=== PATIENT | female | born 1960 | race Caucasian/White ===

== ENCOUNTER 2018-12-28 15:28 | Inpatient (IN) | payer MEDICARE, OTHER ==
[~2018-12-28] VITALS: Ht 152.4 cm; Wt 74.9 kg
[2018-12-28 20:00] VITALS: BP 105/65
[2018-12-28] MEDS ORDERED: ALBU18HF2 INH (20:40)
[2018-12-28] MEDS ORDERED: PROP10DR15 (20:41)
[2018-12-28] MEDS ORDERED: ISOS30TA6 PO ×2 (20:46→22:18)
[2018-12-28] MEDS ORDERED: LORA10TA7 PO (20:47)
[2018-12-28] MEDS ORDERED: ONDA8TAB13 PO ×2 (20:49→22:23)
[2018-12-28] MEDS ORDERED: PANT40TA4 PO (20:51)
[2018-12-28] MEDS ORDERED: OXCA300T16 PO (20:52)
[2018-12-28] MEDS ORDERED: SIMV20TA5 PO (20:53)
[2018-12-28] MEDS ORDERED: FLUO20CA39 PO (20:54)
[2018-12-28] MEDS ORDERED: HYDR-3968 PO (21:00)
[2018-12-28] MEDS ORDERED: LORA0.5T PO (21:02)
[2018-12-28] MEDS ORDERED: FLUO40CA10 PO (21:04)
[2018-12-28] MEDS ORDERED: FLUO20CA22 PO (22:20)
[2018-12-28] MEDS ORDERED: PROP10DR15 OP (22:28)
[2018-12-28] MEDS ORDERED: LORazepam 0.5 MG tablet PO PRN (22:35)
[2018-12-28] MEDS ORDERED: albuterol 2.5 MG/3 ML nebule NEB PRN (22:55)
[2018-12-29] MEDS ORDERED: non-formulary drug (Ondansetron (Ondansetron Odt) 1 TAB) PO SCH (02:00)
[2018-12-29] MEDS ORDERED: PROPYLENE GLYCOL OP SCH (02:00)
[2018-12-29] MEDS ORDERED: PROPYLENE GLYCOL EACHEYE PRN (02:25)
[2018-12-29] MEDS ORDERED: acetaminophen 325mg tablet PO PRN ×2 (02:25)
[2018-12-29] MEDS ORDERED: hydrOXYzine 25 MG tablet PO PRN (02:30)
[2018-12-29] MEDS ORDERED: mag hydrox/Alum hydrox/simeth 30ml oral suspension PO PRN (02:30)
[2018-12-29] MEDS ORDERED: magnesium hydroxide 30ml (MOM) UD suspension PO PRN (02:30)
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
[2018-12-29 07:52] VITALS: BP 110/72
[2018-12-29] MEDS ORDERED: FLUoxetine 20mg capsule PO SCH ×2 (08:00)
[2018-12-29] MEDS ORDERED: ondansetron 4mg rapidly disintigrating tab PO SCH (08:00)
[2018-12-29 08:18] LABS: CHOL/HDL RATIO 3.1 (0.00-4.99); CHOLESTEROL 178 MG/DL (0-200); HDL CHOLESTEROL 58 MG/DL (35-60); LDL CHOLESTEROL 96 MG/DL (50-100); TRIGLYCERIDES 160 MG/DL (20-135)
[2018-12-29 08:19] LABS: HEMOGLOBIN A1C 5.7 % (4.5-6.2)
[2018-12-29] MEDS: loratadine 10mg tablet PO SCH (08:42)
[2018-12-29] MEDS: isosorbide mononitrate 30mg tab.SR.24H PO SCH (08:42)
[2018-12-29] MEDS: oxcarbazepine 150mg tablet PO SCH ×2 (08:43→21:09)
[2018-12-29] MEDS: pantoprazole 40mg Tablet.DR PO SCH (08:43)
[2018-12-29] MEDS ORDERED: ondansetron 4mg rapidly disintigrating tab PO PRN (09:00)
[2018-12-29] MEDS: FLUoxetine 20mg capsule PO SCH (09:46)
[2018-12-29] MEDS: HYDROcodone/acetaminophen 7.5MG/325MG per 15ml UD CUP PO PRN (09:47)
[2018-12-29] MEDS ORDERED: tuberculin, purif. prot. deriv. 5 units/0.1ml ID ONE (10:00)
[2018-12-29] MEDS ORDERED: sennosides/docusate sodium tablet PO PRN (12:20)
[2018-12-29 13:01] LABS: BASOPHILS # (AUTO) 0.1 X10'3 (0-0.2); BASOPHILS % (AUTO) 0.9 % (0-1); EOSINOPHILS % (AUTO) 0.5 % (0-6); HEMATOCRIT 42.3 % (35.0-45.0); HEMOGLOBIN 14.3 g/dl (12.0-16.0); LYMPHOCYTES # (AUTO) 1.6 X10'3 (1.1-4.8); LYMPHOCYTES % (AUTO) 15.4 % (21-51); MEAN CORPUSCULAR HEMOGLOBIN 31.5 PG (27.0-31.0); MEAN CORPUSCULAR HGB CONC 33.8 g/dL (33.0-36.5); MEAN CORPUSCULAR VOLUME 93.2 FL (78-98); MEAN PLATELET VOLUME 6.5 FL (7.4-10.4); MONOCYTES # (AUTO) 0.6 X10'3 (0-0.9); NEUTROPHILS % (AUTO) 77.2 % (42-75); PLATELET COUNT 339 X10'3 (140-440); RED BLOOD COUNT 4.54 X10'6 (4.20-5.60); RED CELL DISTRIBUTION WIDTH 13.7 % (11.5-14.5); WHITE BLOOD COUNT 10.4 X10'3 (4.5-11.0)
[2018-12-29 13:12] LABS: ALBUMIN 3.8 G/DL (3.4-5.0); ANION GAP 10 (8-16); BLOOD UREA NITROGEN 24 MG/DL (7-18); BUN/CREATININE RATIO 27.3 (6.6-38.0); CALCIUM 9.1 MG/DL (8.5-10.1); CHLORIDE 99 MMOL/L (99-107); CREATININE 0.88 MG/DL (0.40-0.90); GLUCOSE 120 MG/DL (70-104); SODIUM 136 MMOL/L (135-145); TOTAL CARBON DIOXIDE 26.9 MMOL/L (24-32); eGFR 66 ML/MIN
--- NOTE | 2018-12-29 13:22 | NUR ---
Nursing Note: Pt reports having positive PPD in the past. Chest X-ray negative for signs of TB. Will continue to monitor.
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
[2018-12-29 14:50] VITALS: BP 129/77
[2018-12-29] MEDS ORDERED: aspirin 325mg tablet PO ONE (15:15)
[2018-12-29] MEDS: nitroGLYCERIN 0.4mg SUBLingual tab SL PRN (15:29)
--- NOTE | 2018-12-29 15:36 | NUR ---
Nursing Note: At 1445, pt reported 5/[address] Alfaro notified, EKG performed, troponins series ordered, aspirin 325 mg, 1 nitro 0.4 mg administered. Will continue to monitor.
[2018-12-29 15:53] VITALS: BP 120/74
[2018-12-29 16:50] VITALS: BP 133/75
--- NOTE | 2018-12-29 17:09 | NUR ---
Nursing Note: Pt reports nitro helped chest pain. She refuses a second dose of nitroglycerin. VS stable. 1st troponin <0.4. Will continue to monitor.
[2018-12-29 20:00] VITALS: BP 107/76
[2018-12-29] MEDS: lurasidone 20mg tablet PO SCH (21:00)
[2018-12-29] MEDS: atorvastatin 20mg tablet PO SCH (21:09)
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
[2018-12-29] MEDS ORDERED: OLANZapine 5mg rapidly disint. tablet PO ONE (22:55)
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
[2018-12-30 07:43] VITALS: BP 131/77
[2018-12-30] MEDS: loratadine 10mg tablet PO SCH (08:00)
[2018-12-30] MEDS: pantoprazole 40mg Tablet.DR PO SCH (08:34)
[2018-12-30] MEDS: FLUoxetine 20mg capsule PO SCH (08:35)
[2018-12-30] MEDS: oxcarbazepine 150mg tablet PO SCH ×2 (08:35→21:14)
[2018-12-30] MEDS: isosorbide mononitrate 30mg tab.SR.24H PO SCH (08:35)
[2018-12-30] MEDS: HYDROcodone/acetaminophen 7.5MG/325MG per 15ml UD CUP PO PRN (14:40)
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
--- NOTE | 2018-12-30 18:18 | NUR ---
Pt. attempting to get out front door.
[2018-12-30 19:43] VITALS: BP 142/83
[2018-12-30] MEDS: lurasidone 20mg tablet PO SCH (21:00)
[2018-12-30] MEDS: atorvastatin 20mg tablet PO SCH (21:14)
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
[2018-12-31] MEDS: pantoprazole 40mg Tablet.DR PO SCH (07:18)
[2018-12-31] MEDS: isosorbide mononitrate 30mg tab.SR.24H PO SCH (07:18)
[2018-12-31] MEDS: FLUoxetine 20mg capsule PO SCH (07:18)
[2018-12-31] MEDS: loratadine 10mg tablet PO SCH (07:19)
[2018-12-31] MEDS: oxcarbazepine 150mg tablet PO SCH (07:19)
[2018-12-31 07:49] VITALS: BP 144/86
[2018-12-31] MEDS ORDERED: oxcarbazepine 150mg tablet PO ONE (10:00)
--- NOTE | 2018-12-31 10:33 | NUR ---
Nursing Note Patient refused her Trileptal, Claritin, Imdur, Protonix, and Latuda at night. Patient was demanding that she was not given the right Trileptal, went to pharmacy and they are working on getting her own medication that she brought in, because she is very paranoid and will not take Trileptal we have in stock. Patient is demanding to leave, called the Nursing Outbound Telemarketing Representative to complain. States that she called the [place] Attorneys office, Patients Advocate. Called security because she was getting into heated arguments with Kecia, Director. Patient believes that there is nothing wrong with her. Patient very paranoid of everyone, thinks we are trying to steal her money. In hallway now and believes that we are spraying her with Abilify.
[2018-12-31] MEDS: nitroGLYCERIN 0.4mg SUBLingual tab SL PRN ×3 (12:21→12:49)
[2018-12-31] MEDS: HYDROcodone/acetaminophen 7.5MG/325MG per 15ml UD CUP PO PRN (12:24)
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
[2018-12-31 20:24] VITALS: BP 138/90
[2018-12-31] MEDS: lurasidone 20mg tablet PO SCH (21:00)
[2018-12-31] MEDS: olanzapine 10mg tablet PO SCH (21:00)
[2018-12-31] MEDS: atorvastatin 20mg tablet PO SCH (21:08)
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
[2019-01-01] MEDS: loratadine 10mg tablet PO SCH (08:00)
[2019-01-01] MEDS: isosorbide mononitrate 30mg tab.SR.24H PO SCH (08:00)
[2019-01-01] MEDS: pantoprazole 40mg Tablet.DR PO SCH (08:00)
[2019-01-01] MEDS: FLUoxetine 20mg capsule PO SCH (08:00)
--- NOTE | 2019-01-01 11:12 | NUR ---
Nursing Note: Pt refused AM VS. Addendum: 01/01/19 at 1113 by Laney Mcgraw RN Amended: Links added.
[2019-01-01] MEDS ORDERED: OLANZapine **IM** 10 mg inj. IM ONE (12:04)
[2019-01-01] MEDS ORDERED: benztropine 1 mg/ml 2ml ampule ONE (12:04)
[2019-01-01] MEDS ORDERED: LORazepam 2 mg/ml vial ONE (12:05)
--- NOTE | 2019-01-01 12:15 | NUR ---
Denial of Rights Pt ran into the nurses' station and yelled at staff. Would not leave when asked to step out. Pt was trying to intimidate staff by posturing and standing close, putting her face close to the staff's face. Security was called and was trying to guide her to her room, which she resisted and put her hands on the security officers, was yelling, making paranoid statements, posturing. Pt declined oral medications. Dr. Byrne was called and order was received to administer Zyprexa 5 mg, Ativan 2 mg, and Cogentin 1 mg IM. Medication given. Patient physically restrained by staff for less than one minute to administer IM, then released. Staff then walked out of her room and monitored her from the hallway. Pt paced for 10-15 min, then laid down in her bed and fell asleep. Monitoring q 15 min and within line of site from nurse's station.
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
[2019-01-01 19:58] VITALS: BP 130/93
[2019-01-01] MEDS: atorvastatin 20mg tablet PO SCH (20:24)
[2019-01-01] MEDS ORDERED: LORazepam 2 mg/ml vial IM PRN (20:50)
[2019-01-01] MEDS ORDERED: OLANZapine **IM** 10 mg inj. IM PRN (20:50)
[2019-01-01] MEDS ORDERED: benztropine 1 mg/ml 2ml ampule IM PRN (20:50)
[2019-01-01] MEDS: lurasidone 20mg tablet PO SCH (21:00)
[2019-01-01] MEDS: olanzapine 10mg tablet PO SCH (21:00)
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
[2019-01-02] MEDS: pantoprazole 40mg Tablet.DR PO SCH (07:06)
[2019-01-02] MEDS: FLUoxetine 20mg capsule PO SCH (07:06)
[2019-01-02 08:00] VITALS: BP 120/70
[2019-01-02] MEDS: loratadine 10mg tablet PO SCH (08:00)
[2019-01-02] MEDS: isosorbide mononitrate 30mg tab.SR.24H PO SCH (08:38)
[2019-01-02] MEDS ORDERED: LORazepam 1 MG tablet PO PRN (10:20)
[2019-01-02] MEDS ORDERED: OLANZapine 2.5MG tablet PO PRN (10:20)
[2019-01-02] MEDS ORDERED: benztropine 1mg tablet PO PRN (10:40)
--- NOTE | 2019-01-02 11:13 | NUR ---
Initial: Pt admit with psychosis. Pt currently on regular diet with fluctuating PO intake overall 100% with refusal of three meals. Current mentation likely impacting PO intake however pt likely meeting nutrient needs since mostly 100% PO intake. LBM 12/28, pt documented as resistive to care and refusing medications. Recommend prunes with lunch today to help with BM. No edema or wounds. No nutrition diagnosis at this time. Will continue to follow. Recommendations: 1) Continue regular diet 2) Encourage PO intake; monitor need for ONS 3) Routine bowel care; monitor need for additional 4) Weekly wt Addendum: 01/02/19 at [address] Amended: Links added.
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
[2019-01-02 20:00] VITALS: BP 120/72
[2019-01-02] MEDS: olanzapine 10mg tablet PO SCH (20:53)
[2019-01-02] MEDS: atorvastatin 20mg tablet PO SCH (20:53)
[2019-01-02] MEDS: HYDROcodone/acetaminophen 7.5MG/325MG per 15ml UD CUP PO PRN (20:55)
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
[2019-01-03 08:00] VITALS: BP 107/71
[2019-01-03] MEDS: loratadine 10mg tablet PO SCH (08:00)
[2019-01-03] MEDS ORDERED: benztropine 1mg tablet PO SCH (08:00)
[2019-01-03] MEDS: pantoprazole 40mg Tablet.DR PO SCH (08:05)
[2019-01-03] MEDS: FLUoxetine 20mg capsule PO SCH (08:06)
[2019-01-03] MEDS: isosorbide mononitrate 30mg tab.SR.24H PO SCH (08:06)
[2019-01-03] MEDS: HYDROcodone/acetaminophen 7.5MG/325MG per 15ml UD CUP PO PRN ×2 (13:43→20:27)
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
[2019-01-03 19:00] VITALS: BP 136/90
[2019-01-03] MEDS: atorvastatin 20mg tablet PO SCH (20:11)
[2019-01-03] MEDS ORDERED: OLANZAPINE 5 MG TABLET PO SCH (21:00)
[2019-01-03] MEDS ORDERED: OLANZapine 2.5MG tablet PO ONE (21:40)
[2019-01-03] MEDS ORDERED: OLANZAPINE 5 MG TABLET PO ONE (22:10)
--- NOTE | 2019-01-03 22:30 | NUR ---
Nursing Note: Zyprexa increased to 15mg at HS per MD, and this magazine writer had already administered previously ordered 10mg of Zyprexa. Administered another 5mg of Zyprexa to meet ordered 15mg dose.
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
[2019-01-04] MEDS: pantoprazole 40mg Tablet.DR PO SCH (07:46)
[2019-01-04] MEDS: isosorbide mononitrate 30mg tab.SR.24H PO SCH (07:46)
[2019-01-04] MEDS: FLUoxetine 20mg capsule PO SCH (07:47)
[2019-01-04] MEDS: loratadine 10mg tablet PO SCH (07:47)
[2019-01-04 08:00] VITALS: BP 128/68
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
[2019-01-04] MEDS: HYDROcodone/acetaminophen 7.5MG/325MG per 15ml UD CUP PO PRN (19:22)
[2019-01-04 20:00] VITALS: BP 116/63
[2019-01-04] MEDS: olanzapine 10mg tablet PO SCH (21:33)
[2019-01-04] MEDS: atorvastatin 20mg tablet PO SCH (21:33)
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
[2019-01-05 07:30] VITALS: BP 106/71
[2019-01-05] MEDS: loratadine 10mg tablet PO SCH (08:00)
[2019-01-05] MEDS: isosorbide mononitrate 30mg tab.SR.24H PO SCH (08:00)
[2019-01-05] MEDS: pantoprazole 40mg Tablet.DR PO SCH ×2 (08:00→11:04)
[2019-01-05] MEDS: FLUoxetine 20mg capsule PO SCH ×2 (08:00→11:04)
[2019-01-05] MEDS: OLANZapine 2.5MG tablet PO SCH (09:20)
[2019-01-05] MEDS ORDERED: OLANZapine **IM** 10 mg inj. IM ONE (09:50)
[2019-01-05] MEDS: HYDROcodone/acetaminophen 7.5MG/325MG per 15ml UD CUP PO PRN ×2 (10:57→20:44)
--- NOTE | 2019-01-05 13:51 | NUR ---
DISCHARGE PLANNING: Phoned [facility] @ [phone] Friday "Played phone tag", on last message, explained trying to find out any services pt qualifies for, having difficulty securing any information for follow-up care would CB Sat. and gave contact info for Tomy Lagunas as I would be out of the office for 10 days. Received message back from Peyton @ [facility] she said they are no longer staffing on Saturdays but she would leave message to have someone call on Monday. Phoned [facility] @ [phone], Pt has not seen a provider there in a very long time. LM asking for CB if pt could be seen there by PCP and possibly a therapist, gave contact info for PAYAL Lagunas. JUVENCIO Ayala
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
[2019-01-05 20:00] VITALS: BP 117/81
[2019-01-05] MEDS: olanzapine 10mg tablet PO SCH (20:43)
[2019-01-05] MEDS: atorvastatin 20mg tablet PO SCH (20:43)
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
[2019-01-06] MEDS: OLANZapine 2.5MG tablet PO SCH ×2 (07:08→09:20)
[2019-01-06] MEDS: FLUoxetine 20mg capsule PO SCH (07:08)
[2019-01-06] MEDS: pantoprazole 40mg Tablet.DR PO SCH (07:08)
[2019-01-06] MEDS: loratadine 10mg tablet PO SCH (07:09)
[2019-01-06] MEDS: isosorbide mononitrate 30mg tab.SR.24H PO SCH (07:09)
[2019-01-06 08:00] VITALS: BP 125/77
--- NOTE | 2019-01-06 14:33 | NUR ---
DISCHARGE PLANNING: SW received TC from pt's daughter, Peyton [phone], who reports she would like to be informed when pt discharges because she will be providing transportation and third libertarian assistance. SW agreed to take information and make contact as pt discharge came closer. Marlene Cedillo, Chief Minister PLATING TECHNICIAN [id number] Supervised by Telly Dalton, [id number]
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
[2019-01-06 19:57] VITALS: BP 112/77
[2019-01-06] MEDS: atorvastatin 20mg tablet PO SCH (20:18)
[2019-01-06] MEDS: olanzapine 10mg tablet PO SCH (20:19)
[2019-01-06] MEDS: HYDROcodone/acetaminophen 7.5MG/325MG per 15ml UD CUP PO PRN (20:27)
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
[2019-01-07 07:38] VITALS: BP 118/73
[2019-01-07] MEDS: OLANZapine 2.5MG tablet PO SCH (08:47)
[2019-01-07] MEDS: isosorbide mononitrate 30mg tab.SR.24H PO SCH (08:48)
[2019-01-07] MEDS: FLUoxetine 20mg capsule PO SCH (08:48)
[2019-01-07] MEDS: loratadine 10mg tablet PO SCH (08:49)
[2019-01-07] MEDS: pantoprazole 40mg Tablet.DR PO SCH (08:49)
[2019-01-07] MEDS: HYDROcodone/acetaminophen 7.5MG/325MG per 15ml UD CUP PO PRN ×2 (11:27→17:36)
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
[2019-01-07 20:05] VITALS: BP 131/77
[2019-01-07] MEDS: atorvastatin 20mg tablet PO SCH (20:43)
[2019-01-07] MEDS: olanzapine 10mg tablet PO SCH (20:44)
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
[2019-01-08 07:46] VITALS: BP 145/79
[2019-01-08] MEDS: pantoprazole 40mg Tablet.DR PO SCH (08:10)
[2019-01-08] MEDS: FLUoxetine 20mg capsule PO SCH (08:10)
[2019-01-08] MEDS: OLANZapine 2.5MG tablet PO SCH (08:11)
[2019-01-08] MEDS: loratadine 10mg tablet PO SCH (08:11)
[2019-01-08] MEDS: isosorbide mononitrate 30mg tab.SR.24H PO SCH (08:11)
[2019-01-08 12:46] LABS: PARTIAL THROMBOPLASTIN TIME 27 SECONDS (22-32)
[2019-01-08 12:47] LABS: ALANINE AMINOTRANSFERASE 42 U/L (12-78); ALBUMIN 3.2 G/DL (3.4-5.0); ALBUMIN/GLOBULIN RATIO 1.1 (1.1-1.5); ALKALINE PHOSPHATASE 63 IU/L (46-116); ANION GAP 8 (8-16); ASPARTATE AMINO TRANSFERASE 20 U/L (10-37); BILIRUBIN,TOTAL 0.2 MG/DL (0.1-1.0); BLOOD UREA NITROGEN 12 MG/DL (7-18); BUN/CREATININE RATIO 16.7 (6.6-38.0); CALCIUM 8.5 MG/DL (8.5-10.1); CHLORIDE 108 MMOL/L (99-107); CREATININE 0.72 MG/DL (0.40-0.90); GLUCOSE 81 MG/DL (70-104); POTASSIUM 3.7 MMOL/L (3.5-5.1); SODIUM 145 MMOL/L (135-145); TROPONIN I < 0.04 NG/ML (0.0-0.05); eGFR 83 ML/MIN
[2019-01-08] MEDS: nitroGLYCERIN 0.4mg SUBLingual tab SL PRN ×2 (12:52→13:14)
[2019-01-08] MEDS: HYDROcodone/acetaminophen 7.5MG/325MG per 15ml UD CUP PO PRN ×2 (13:14→20:57)
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
[2019-01-08 13:20] VITALS: BP 105/71
[2019-01-08 13:52] LABS: BASOPHILS # (AUTO) 0.1 X10'3 (0-0.2); BASOPHILS % (AUTO) 0.8 % (0-1); EOSINOPHILS # (AUTO) 0.1 X10'3 (0-0.9); EOSINOPHILS % (AUTO) 1.2 % (0-6); HEMATOCRIT 36.5 % (35.0-45.0); HEMOGLOBIN 12.2 g/dl (12.0-16.0); LYMPHOCYTES # (AUTO) 1.3 X10'3 (1.1-4.8); LYMPHOCYTES % (AUTO) 19.9 % (21-51); MEAN CORPUSCULAR HEMOGLOBIN 31.2 PG (27.0-31.0); MEAN CORPUSCULAR HGB CONC 33.5 g/dL (33.0-36.5); MEAN CORPUSCULAR VOLUME 93.3 FL (78-98); MEAN PLATELET VOLUME 7.9 FL (7.4-10.4); MONOCYTES # (AUTO) 0.4 X10'3 (0-0.9); MONOCYTES % (AUTO) 5.8 % (2-12); NEUTROPHILS # (AUTO) 4.8 X10'3 (1.8-7.7); NEUTROPHILS % (AUTO) 72.3 % (42-75); PLATELET COUNT 280 X10'3 (140-440); RED BLOOD COUNT 3.91 X10'6 (4.20-5.60); RED CELL DISTRIBUTION WIDTH 13.4 % (11.5-14.5); WHITE BLOOD COUNT 6.6 X10'3 (4.5-11.0)
--- NOTE | 2019-01-08 15:37 | NUR ---
Reassessment: Pt average PO intake overall 75-100%, meeting nutrient needs. [facility] 01/08, Will continue to follow. Recommendations: 1) Continue regular diet 2) Encourage PO intake 3) bowel care as needed 4) Weekly wt Addendum: 01/08/19 at [address] Amended: Links added.
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
[2019-01-08 19:31] VITALS: BP 110/65
[2019-01-08] MEDS: atorvastatin 20mg tablet PO SCH (20:58)
[2019-01-08] MEDS: olanzapine 10mg tablet PO SCH (20:58)
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
[2019-01-09] MEDS: OLANZapine 2.5MG tablet PO SCH (07:47)
[2019-01-09] MEDS: isosorbide mononitrate 30mg tab.SR.24H PO SCH (07:47)
[2019-01-09] MEDS: loratadine 10mg tablet PO SCH (07:48)
[2019-01-09] MEDS: pantoprazole 40mg Tablet.DR PO SCH (07:48)
[2019-01-09] MEDS: FLUoxetine 20mg capsule PO SCH (07:48)
[2019-01-09 08:00] VITALS: BP 106/62
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
[2019-01-09] MEDS: HYDROcodone/acetaminophen 7.5MG/325MG per 15ml UD CUP PO PRN (19:36)
[2019-01-09 19:44] VITALS: BP 109/76
[2019-01-09] MEDS: atorvastatin 20mg tablet PO SCH (20:49)
[2019-01-09] MEDS ORDERED: OLANZAPINE 5 MG TABLET PO SCH (21:00)
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
[2019-01-10] MEDS: pantoprazole 40mg Tablet.DR PO SCH (07:57)
[2019-01-10] MEDS: OLANZAPINE 5 MG TABLET PO SCH (07:58)
[2019-01-10] MEDS: loratadine 10mg tablet PO SCH (07:58)
[2019-01-10 07:59] VITALS: BP 141/80
[2019-01-10] MEDS: FLUoxetine 20mg capsule PO SCH (07:59)
[2019-01-10] MEDS: isosorbide mononitrate 30mg tab.SR.24H PO SCH (07:59)
[2019-01-10] MEDS: HYDROcodone/acetaminophen 7.5MG/325MG per 15ml UD CUP PO PRN ×2 (16:16→19:58)
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
[2019-01-10 19:00] VITALS: BP 113/86
[2019-01-10] MEDS ORDERED: OLANZAPINE 5 MG TABLET PO SCH (21:00)
[2019-01-10] MEDS: atorvastatin 20mg tablet PO SCH (21:17)
[2019-01-10] MEDS ORDERED: olanzapine 10mg tablet PO PRN (22:58)
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
[2019-01-11 08:00] VITALS: BP 133/93
[2019-01-11] MEDS: loratadine 10mg tablet PO SCH (08:10)
[2019-01-11] MEDS: pantoprazole 40mg Tablet.DR PO SCH (08:10)
[2019-01-11] MEDS: isosorbide mononitrate 30mg tab.SR.24H PO SCH (08:10)
[2019-01-11] MEDS: FLUoxetine 20mg capsule PO SCH (08:10)
[2019-01-11] MEDS: OLANZAPINE 5 MG TABLET PO SCH (08:10)
[2019-01-11] MEDS: HYDROcodone/acetaminophen 7.5MG/325MG per 15ml UD CUP PO PRN (12:10)
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
[2019-01-11 19:00] VITALS: BP 126/67
[2019-01-11] MEDS: atorvastatin 20mg tablet PO SCH (21:03)
[2019-01-11] MEDS: olanzapine 10mg tablet PO SCH (21:03)
[2019-01-11] MEDS: traZODone 50mg tablet PO SCH (21:04)
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
[2019-01-12 08:00] VITALS: BP 123/83
[2019-01-12] MEDS: loratadine 10mg tablet PO SCH (08:15)
[2019-01-12] MEDS: pantoprazole 40mg Tablet.DR PO SCH (08:15)
[2019-01-12] MEDS: FLUoxetine 20mg capsule PO SCH (08:15)
[2019-01-12] MEDS: isosorbide mononitrate 30mg tab.SR.24H PO SCH (08:15)
[2019-01-12] MEDS: OLANZAPINE 5 MG TABLET PO SCH (08:15)
[2019-01-12] MEDS: HYDROcodone/acetaminophen 7.5MG/325MG per 15ml UD CUP PO PRN (10:49)
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
[2019-01-12 20:00] VITALS: BP 146/80
[2019-01-12] MEDS: atorvastatin 20mg tablet PO SCH (20:49)
[2019-01-12] MEDS: traZODone 50mg tablet PO SCH (20:49)
[2019-01-12] MEDS: olanzapine 10mg tablet PO SCH (20:49)
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
[2019-01-13 08:00] VITALS: BP 102/61
[2019-01-13] MEDS: isosorbide mononitrate 30mg tab.SR.24H PO SCH (08:20)
[2019-01-13] MEDS: FLUoxetine 20mg capsule PO SCH (08:20)
[2019-01-13] MEDS: pantoprazole 40mg Tablet.DR PO SCH (08:20)
[2019-01-13] MEDS: OLANZAPINE 5 MG TABLET PO SCH (08:20)
[2019-01-13] MEDS: loratadine 10mg tablet PO SCH (08:20)
[2019-01-13] MEDS: HYDROcodone/acetaminophen 7.5MG/325MG per 15ml UD CUP PO PRN (13:49)
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
[2019-01-13 19:57] VITALS: BP 128/77
[2019-01-13] MEDS: traZODone 50mg tablet PO SCH (20:26)
[2019-01-13] MEDS: olanzapine 10mg tablet PO SCH (20:26)
[2019-01-13] MEDS: atorvastatin 20mg tablet PO SCH (20:26)
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
[2019-01-14 07:37] VITALS: BP 155/70
[2019-01-14] MEDS: FLUoxetine 20mg capsule PO SCH (08:28)
[2019-01-14] MEDS: loratadine 10mg tablet PO SCH (08:28)
[2019-01-14] MEDS: OLANZAPINE 5 MG TABLET PO SCH (08:28)
[2019-01-14] MEDS: isosorbide mononitrate 30mg tab.SR.24H PO SCH (08:28)
[2019-01-14] MEDS: pantoprazole 40mg Tablet.DR PO SCH (08:28)
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
[2019-01-14] MEDS: HYDROcodone/acetaminophen 7.5MG/325MG per 15ml UD CUP PO PRN (20:31)
[2019-01-14 20:35] VITALS: BP 130/72
[2019-01-14] MEDS: atorvastatin 20mg tablet PO SCH (20:47)
[2019-01-14] MEDS: traZODone 50mg tablet PO SCH (20:49)
[2019-01-14] MEDS: olanzapine 10mg tablet PO SCH (20:49)
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
[2019-01-15 07:33] VITALS: BP 122/81
[2019-01-15] MEDS: loratadine 10mg tablet PO SCH (08:33)
[2019-01-15] MEDS: OLANZAPINE 5 MG TABLET PO SCH (08:33)
[2019-01-15] MEDS: pantoprazole 40mg Tablet.DR PO SCH (08:33)
[2019-01-15] MEDS: isosorbide mononitrate 30mg tab.SR.24H PO SCH (08:33)
[2019-01-15] MEDS: FLUoxetine 20mg capsule PO SCH (08:34)
[2019-01-15] MEDS: HYDROcodone/acetaminophen 7.5MG/325MG per 15ml UD CUP PO PRN ×2 (12:20→19:57)
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
[2019-01-15] MEDS: olanzapine 10mg tablet PO SCH (20:50)
[2019-01-15] MEDS: atorvastatin 20mg tablet PO SCH (20:50)
[2019-01-15] MEDS: traZODone 50mg tablet PO SCH (20:51)
[2019-01-15 20:58] VITALS: BP 113/66
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
[2019-01-16 08:00] VITALS: BP 129/68
[2019-01-16] MEDS: loratadine 10mg tablet PO SCH (08:33)
[2019-01-16] MEDS: isosorbide mononitrate 30mg tab.SR.24H PO SCH (08:33)
[2019-01-16] MEDS: FLUoxetine 20mg capsule PO SCH (08:33)
[2019-01-16] MEDS: OLANZAPINE 5 MG TABLET PO SCH (08:33)
[2019-01-16] MEDS: pantoprazole 40mg Tablet.DR PO SCH (08:33)
[2019-01-16] MEDS: HYDROcodone/acetaminophen 7.5MG/325MG per 15ml UD CUP PO PRN (13:29)
--- NOTE | 2019-01-16 14:04 | NUR ---
Reassessment: Pt average PO intake overall 75-100%, meeting nutrient needs. LBM 01/15, documented as large liquid, last senna dose six days ago. Will continue to follow and monitor PO, LBM, wt. Recommendations: 1) Continue regular diet 2) Encourage PO intake 3) bowel care as needed 4) Weekly wt Addendum: 01/16/19 at [address] Amended: Links added.
[2019-01-16] MEDS ORDERED: risperiDONE 0.5mg tablet PO ONE (17:05)
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
[2019-01-16 20:49] VITALS: BP 99/69
[2019-01-16] MEDS: atorvastatin 20mg tablet PO SCH ×2 (21:27→21:28)
[2019-01-16] MEDS: risperiDONE 0.5mg tablet PO SCH (21:28)
[2019-01-16] MEDS: traZODone 50mg tablet PO SCH (21:29)
[2019-01-16] MEDS: olanzapine 10mg tablet PO SCH (21:29)
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
[2019-01-17] MEDS: HYDROcodone/acetaminophen 7.5MG/325MG per 15ml UD CUP PO PRN ×2 (06:55→20:21)
[2019-01-17] MEDS: isosorbide mononitrate 30mg tab.SR.24H PO SCH (07:26)
[2019-01-17] MEDS: FLUoxetine 20mg capsule PO SCH (07:27)
[2019-01-17] MEDS: loratadine 10mg tablet PO SCH (07:27)
[2019-01-17] MEDS: pantoprazole 40mg Tablet.DR PO SCH (07:27)
[2019-01-17] MEDS: OLANZAPINE 5 MG TABLET PO SCH (07:27)
[2019-01-17] MEDS: risperiDONE 0.5mg tablet PO SCH ×2 (07:28→20:24)
[2019-01-17 07:30] VITALS: BP 120/72
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
[2019-01-17 20:00] VITALS: BP 125/76
[2019-01-17] MEDS: traZODone 50mg tablet PO SCH (20:23)
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
[2019-01-18] MEDS: HYDROcodone/acetaminophen 7.5MG/325MG per 15ml UD CUP PO PRN ×2 (07:24→14:12)
[2019-01-18] MEDS: pantoprazole 40mg Tablet.DR PO SCH (07:24)
[2019-01-18] MEDS: loratadine 10mg tablet PO SCH (07:25)
[2019-01-18] MEDS: risperiDONE 0.5mg tablet PO SCH ×2 (07:25→21:00)
[2019-01-18] MEDS: FLUoxetine 20mg capsule PO SCH (07:25)
[2019-01-18] MEDS: isosorbide mononitrate 30mg tab.SR.24H PO SCH (07:25)
[2019-01-18 07:30] VITALS: BP 115/76
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
[2019-01-18 19:00] VITALS: BP 108/66
[2019-01-18] MEDS: atorvastatin 20mg tablet PO SCH (21:00)
[2019-01-18] MEDS: traZODone 50mg tablet PO SCH (21:01)
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
[2019-01-19 07:30] VITALS: BP 127/79
[2019-01-19] MEDS: FLUoxetine 20mg capsule PO SCH (07:43)
[2019-01-19] MEDS: pantoprazole 40mg Tablet.DR PO SCH (07:43)
[2019-01-19] MEDS: risperiDONE 0.5mg tablet PO SCH ×2 (07:44→20:32)
[2019-01-19] MEDS: isosorbide mononitrate 30mg tab.SR.24H PO SCH (07:44)
[2019-01-19] MEDS: loratadine 10mg tablet PO SCH (07:45)
[2019-01-19] MEDS: HYDROcodone/acetaminophen 7.5MG/325MG per 15ml UD CUP PO PRN ×2 (07:46→16:00)
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
[2019-01-19 20:00] VITALS: BP 119/70
[2019-01-19] MEDS: atorvastatin 20mg tablet PO SCH (20:31)
[2019-01-19] MEDS: traZODone 50mg tablet PO SCH (20:33)
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
[2019-01-20] MEDS: pantoprazole 40mg Tablet.DR PO SCH (07:49)
[2019-01-20] MEDS: FLUoxetine 20mg capsule PO SCH (07:49)
[2019-01-20] MEDS: isosorbide mononitrate 30mg tab.SR.24H PO SCH (07:49)
[2019-01-20] MEDS: risperiDONE 0.5mg tablet PO SCH ×2 (07:49→20:26)
[2019-01-20] MEDS: loratadine 10mg tablet PO SCH (07:49)
[2019-01-20 08:04] VITALS: BP 118/66
[2019-01-20] MEDS: albuterol 2.5 MG/3 ML nebule NEB SCH ×3 (13:45→23:15)
[2019-01-20] MEDS: HYDROcodone/acetaminophen 7.5MG/325MG per 15ml UD CUP PO PRN (14:29)
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
[2019-01-20 19:57] VITALS: BP 100/61
[2019-01-20] MEDS: traZODone 50mg tablet PO SCH (20:25)
[2019-01-20] MEDS: atorvastatin 20mg tablet PO SCH (20:25)
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
[2019-01-21] MEDS: albuterol 2.5 MG/3 ML nebule NEB SCH ×2 (03:18→07:02)
[2019-01-21 07:00] VITALS: BP 108/67
[2019-01-21] MEDS: isosorbide mononitrate 30mg tab.SR.24H PO SCH (07:46)
[2019-01-21] MEDS: pantoprazole 40mg Tablet.DR PO SCH (07:46)
[2019-01-21] MEDS: risperiDONE 0.5mg tablet PO SCH ×2 (07:46→20:13)
[2019-01-21] MEDS: FLUoxetine 20mg capsule PO SCH (07:46)
[2019-01-21] MEDS: loratadine 10mg tablet PO SCH (07:46)
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
[2019-01-21] MEDS: HYDROcodone/acetaminophen 7.5MG/325MG per 15ml UD CUP PO PRN (20:00)
[2019-01-21] MEDS: atorvastatin 20mg tablet PO SCH (20:12)
[2019-01-21] MEDS: traZODone 50mg tablet PO SCH (20:13)
[2019-01-21 20:39] VITALS: BP 123/79
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
[2019-01-22] MEDS: HYDROcodone/acetaminophen 7.5MG/325MG per 15ml UD CUP PO PRN ×2 (03:44→14:34)
[2019-01-22] MEDS: loratadine 10mg tablet PO SCH (07:43)
[2019-01-22] MEDS: isosorbide mononitrate 30mg tab.SR.24H PO SCH (07:44)
[2019-01-22] MEDS: FLUoxetine 20mg capsule PO SCH (07:44)
[2019-01-22] MEDS: pantoprazole 40mg Tablet.DR PO SCH (07:44)
[2019-01-22] MEDS: risperiDONE 0.5mg tablet PO SCH ×2 (07:44→20:27)
[2019-01-22 07:47] VITALS: BP 104/51
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
[2019-01-22] MEDS: atorvastatin 20mg tablet PO SCH (20:27)
[2019-01-22] MEDS: traZODone 50mg tablet PO SCH (20:27)
[2019-01-22 20:41] VITALS: BP 103/67
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
[2019-01-23] MEDS: pantoprazole 40mg Tablet.DR PO SCH (07:39)
[2019-01-23] MEDS: risperiDONE 0.5mg tablet PO SCH ×2 (07:39→20:01)
[2019-01-23] MEDS: loratadine 10mg tablet PO SCH (07:39)
[2019-01-23] MEDS: isosorbide mononitrate 30mg tab.SR.24H PO SCH (07:39)
[2019-01-23] MEDS: FLUoxetine 20mg capsule PO SCH (07:39)
[2019-01-23] MEDS: HYDROcodone/acetaminophen 7.5MG/325MG per 15ml UD CUP PO PRN ×2 (07:46→20:09)
[2019-01-23 08:10] VITALS: BP 116/60
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
[2019-01-23] MEDS: traZODone 50mg tablet PO SCH (20:01)
[2019-01-23] MEDS: atorvastatin 20mg tablet PO SCH (20:01)
[2019-01-23 20:50] VITALS: BP 122/65
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
[2019-01-24] MEDS: FLUoxetine 20mg capsule PO SCH (07:44)
[2019-01-24] MEDS: isosorbide mononitrate 30mg tab.SR.24H PO SCH (07:44)
[2019-01-24] MEDS: risperiDONE 0.5mg tablet PO SCH ×2 (07:44→20:49)
[2019-01-24] MEDS: loratadine 10mg tablet PO SCH (07:44)
[2019-01-24] MEDS: pantoprazole 40mg Tablet.DR PO SCH (07:44)
[2019-01-24 07:45] VITALS: BP 104/71
[2019-01-24] MEDS: HYDROcodone/acetaminophen 7.5MG/325MG per 15ml UD CUP PO PRN ×2 (07:46→20:58)
--- NOTE | 2019-01-24 11:40 | NUR ---
Reassessment: Pt continues meeting nutrient needs with documented 75-100% PO intake. LBM 01/23, no longer documented as liquid. Will continue to follow. Recommendations: 1) Continue regular diet 2) bowel care as needed 3) Weekly wt Addendum: 01/24/19 at [address] Amended: Links added.
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
[2019-01-24 20:00] VITALS: BP 110/75
[2019-01-24] MEDS: atorvastatin 20mg tablet PO SCH (20:48)
[2019-01-24] MEDS: traZODone 50mg tablet PO SCH (20:49)
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
[2019-01-25 07:35] VITALS: BP 107/71
[2019-01-25] MEDS: loratadine 10mg tablet PO SCH (07:37)
[2019-01-25] MEDS: isosorbide mononitrate 30mg tab.SR.24H PO SCH (07:37)
[2019-01-25] MEDS: pantoprazole 40mg Tablet.DR PO SCH (07:38)
[2019-01-25] MEDS: FLUoxetine 20mg capsule PO SCH (07:38)
[2019-01-25] MEDS: risperiDONE 0.5mg tablet PO SCH ×2 (09:30→20:33)
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
[2019-01-25 19:50] VITALS: BP 118/78
[2019-01-25] MEDS: atorvastatin 20mg tablet PO SCH (20:33)
[2019-01-25] MEDS: traZODone 50mg tablet PO SCH (20:33)
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
[2019-01-26] MEDS: HYDROcodone/acetaminophen 7.5MG/325MG per 15ml UD CUP PO PRN ×2 (05:45→19:19)
[2019-01-26 07:17] VITALS: BP 96/63
[2019-01-26] MEDS: risperiDONE 0.5mg tablet PO SCH ×2 (08:00→20:25)
[2019-01-26] MEDS: loratadine 10mg tablet PO SCH (08:44)
[2019-01-26] MEDS: FLUoxetine 20mg capsule PO SCH (08:45)
[2019-01-26] MEDS: isosorbide mononitrate 30mg tab.SR.24H PO SCH (08:45)
[2019-01-26] MEDS: pantoprazole 40mg Tablet.DR PO SCH (11:10)
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
[2019-01-26 19:38] VITALS: BP 110/64
[2019-01-26] MEDS: atorvastatin 20mg tablet PO SCH (20:24)
[2019-01-26] MEDS: traZODone 50mg tablet PO SCH (20:25)
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
[2019-01-27] MEDS ORDERED: pantoprazole 40mg Tablet.DR PO SCH (07:30)
[2019-01-27 08:00] VITALS: BP 119/71
[2019-01-27] MEDS: risperiDONE 0.5mg tablet PO SCH ×2 (08:00→20:17)
[2019-01-27] MEDS: pantoprazole 40mg Tablet.DR PO SCH (08:23)
[2019-01-27] MEDS: loratadine 10mg tablet PO SCH (08:25)
[2019-01-27] MEDS: FLUoxetine 20mg capsule PO SCH (08:25)
[2019-01-27] MEDS: HYDROcodone/acetaminophen 7.5MG/325MG per 15ml UD CUP PO PRN ×2 (10:36→18:28)
--- NOTE | 2019-01-27 10:46 | NUR ---
COUNTY UPDATE: emailed updated progress, nursing and MAR notes to [facility] regarding pt tx. Marlene Cedillo, Twitchell Operator PYTHON WEB DEVELOPER [id number] Supervised by Telly Dalton, [id number]
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
--- NOTE | 2019-01-27 18:30 | NUR ---
Patient in room MH 325. I have received report from RN and had the opportunity to ask questions and assume patient care.
[2019-01-27] MEDS ORDERED: albuterol 2.5 MG/3 ML nebule NEB PRN (19:25)
[2019-01-27 19:57] VITALS: BP 114/70
[2019-01-27] MEDS: atorvastatin 20mg tablet PO SCH (20:15)
[2019-01-27] MEDS: traZODone 50mg tablet PO SCH (20:17)
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
[2019-01-28] MEDS: HYDROcodone/acetaminophen 7.5MG/325MG per 15ml UD CUP PO PRN (07:40)
[2019-01-28] MEDS: risperiDONE 0.5mg tablet PO SCH ×2 (07:43→20:44)
[2019-01-28] MEDS: FLUoxetine 20mg capsule PO SCH (07:43)
[2019-01-28] MEDS: pantoprazole 40mg Tablet.DR PO SCH (07:44)
[2019-01-28] MEDS: loratadine 10mg tablet PO SCH (07:44)
[2019-01-28 08:00] VITALS: BP 106/64
--- NOTE | 2019-01-28 12:06 | NUR ---
COLLATERAL: SW made TC to pt's daughter, Peyton at [phone], to discuss discharge planning and pt baseline. SHAR left message requesting a return contact. Marlene Cedillo, Civil Cadd Technician [facility] [id number] Supervised by Telly Dalton, [id number] Addendum: 01/28/19 at 1526 by Marlene SANCHEZ Addition to note: SHAR spoke w/ pt's daughter who reports pt will return to her home w/ her sister (whom she has lived w/ for most of her life), however pt appears to still have some confusion because she is talking about . Per pt's daughter pt has limited paranoia of others when her medication is working for her. SHAR agreed to meet w/ assigned provider and pt to assess prognosis and potential discharge date. Pt's daughter agrees to provide transportation for pt upon discharge, however will not provide third alliance party assistance. Marlene Cedillo, Civil Cadd Technician [facility] [id number] Supervised by Telly Dalton, [id number] Addendum: 01/28/19 at 1634 by Marlene Cedillo Addition to note: SHAR and Dr. Morales met w/ pt in her room. Pt agreed to a visit w/ her sister and discussion of medications that would be less sedating for pt. SHAR made TC to pt's daughter, Peyton, and left message requesting return contact and coordination of visit. Marlene Cedillo, Civil Cadd Technician TRAVEL DIRECTOR
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
[2019-01-28 20:00] VITALS: BP 106/64
[2019-01-28] MEDS: atorvastatin 20mg tablet PO SCH (20:43)
[2019-01-28] MEDS: traZODone 50mg tablet PO SCH (20:43)
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
[2019-01-29 07:31] VITALS: BP 104/54
[2019-01-29] MEDS: loratadine 10mg tablet PO SCH (07:42)
[2019-01-29] MEDS: pantoprazole 40mg Tablet.DR PO SCH (07:42)
[2019-01-29] MEDS: FLUoxetine 20mg capsule PO SCH (07:43)
[2019-01-29] MEDS: risperiDONE 0.5mg tablet PO SCH ×2 (08:00→20:48)
--- NOTE | 2019-01-29 15:46 | NUR ---
COLLATERAL: SW made TC to pt's daughter, Peyton at [phone], who reports pt's sister does not use substances. Per Peyton, she will attempt to coordinate transportation for her aunt to visit pt within the next few days. Peyton agrees to coordinate a visit for 01/30/2019. Marlene Cedillo, Aircraft Lay Out Worker CISTERN ROOM WORKING SUPERVISOR [id number] Supervised by Telly Dalton, [id number]
--- NOTE | 2019-01-29 16:59 | NUR ---
Nursing Progress Note: CASEY Legal hold: [phone] Client on involuntary status for GD Report received from nurse with use of SBAR: XOCHILT Drew Why are they here: Pt transferred from [facility] for grave disability r/t psychotic s/s. Pt has delusions that her family is conspiring behind her back, stealing from her, and placing cameras around the house to record her to make money. Patient believes that multiple family members are beating her in the head causing her to avoid her home. Due to her fears, the pt is unable to provide for food, clothing, and usp. She has past psychiatric admissions and long-standing psychosis. Assessment What has happened this shift: Pt was in community room at change of shift. She is pleasant and conversing with peers and watching tv. When asked about her Bible she reports there is blood split on it. She continues to believe that she is . During AM medication pass she refused to take half of her Risperdal dose (only will take 2/4 pills) d/t her "." Pt refuses to believe she is not despite willfully stating that she has been "fixed." She appears more guarded and resistive to care & medications today. S/I, H/I: Pt denies A/VH: Pt denies Sleep: 7.75hrs NOC ADL's: Independent Group attendance: Yes Were meds taken: Yes Any med S/E: None reported or observed Mental Status Exam Appearance: Clean, appropriate, dressed in own clothing Eye contact: Good Behavior: cooperative, paranoid, Delusional (stating she is and cant take medications) Speech: Clear, soft tone, normal rate and rhythm Mood: Content, occassionally c/o physical unrelieved pain Affect: internally preoccupied, guarded Thought process: , medications Thought Content: perseverating and staff "not listening to me" Cognition: A/O X 3 Insight: Poor Judgment: Poor Interventions PRN's used: Therapeutic interventions: 1:1 assessment, therapeutic conversation, medication administration/ monitoring/education, reality orientation, Q15 min safety checks. Restraints/seclusion/emergency medication: N/A Justification of Continued Inpatient Treatment: Continued therapeutic support and medication management needed to provide stabilization, establishment of a realistic medication regime post discharge to prevent decompensation and readmittance in an acute psychiatric setting. Goal is for pt to go home soon with daughter and sister.
[2019-01-29 20:26] VITALS: BP 112/80
[2019-01-29] MEDS: atorvastatin 20mg tablet PO SCH (20:47)
[2019-01-29] MEDS: traZODone 50mg tablet PO SCH (20:47)
--- NOTE | 2019-01-29 22:50 | NUR ---
Nursing Progress Note: CASEY Legal hold: [phone] Client on involuntary status for GD Report received from nurse with use of SBAR: XOCHILT Drew Why are they here: Pt transferred from [facility] for grave disability r/t psychotic s/s. Pt has delusions that her family is conspiring behind her back, stealing from her, and placing cameras around the house to record her to make money. Patient believes that multiple family members are beating her in the head causing her to avoid her home. Due to her fears, the pt is unable to provide for food, clothing, and retirement. She has past psychiatric admissions and long-standing psychosis. Assessment What has happened this shift: Pt was in room at change of shift. She was up and in her room . When asked about her day she reports I'm taking two many meds it will hurt my baby. She continues to believe that she is . During HS medication pass she was reluctant to take her mdications d/t her "." Pt refuses to believe she is not despite willfully stating that she has been "fixed." She appears more guarded and resistive to care & medications today. S/I, H/I: Pt denies A/VH: Pt denies Sleep: 7.75hrs NOC ADL's: Independent Group attendance: Yes Were meds taken: Yes Any med S/E: None reported or observed Mental Status Exam Appearance: Clean, appropriate, dressed in own clothing Eye contact: Good Behavior: cooperative, paranoid, Delusional (stating she is and cant take medications) Speech: Clear, soft tone, normal rate and rhythm Mood: Content, occassionally c/o physical unrelieved pain Affect: internally preoccupied, guarded Thought process: , medications Thought Content: perseverating and staff "not listening to me" Cognition: A/O X 3 Insight: Poor Judgment: Poor Interventions PRN's used: Therapeutic interventions: 1:1 assessment, therapeutic conversation, medication administration/ monitoring/education, reality orientation, Q15 min safety checks. Restraints/seclusion/emergency medication: N/A Justification of Continued Inpatient Treatment: Continued therapeutic support and medication management needed to provide stabilization, establishment of a realistic medication regime post discharge to prevent decompensation and readmittance in an acute psychiatric setting. Goal is for pt to go home soon with daughter and sister.
--- NOTE | 2019-01-30 07:42 | NUR ---
COLLATERAL/DISCHARGE PLANNING: SW made TC to pt's daughter, Peyton at [phone], who reports she can arrange for a visitation between pt and pt's sister on 02/02/2019 before noon. SW agreed to discuss w/ assigned provider and return contact for discharge planning. Marlene Cedillo, Flight Information Expediter [facility] [id number] Supervised by Telly Dalton, [id number] Addendum: 01/30/19 at 0818 by Marlene Cedillo SS Addition to note: SW received a TC from Peyton, reporting a special visitation w/ pt's sister and daughter this afternoon. SW will coordinate visit w/ assigned provider. Marlene Cedillo, Flight Information Expediter BANKRUPTCY LEGAL ASSISTANT [id number] Supervised by Telly Dalton, [id number]
[2019-01-30 08:00] VITALS: BP 97/47
[2019-01-30] MEDS: loratadine 10mg tablet PO SCH (08:00)
[2019-01-30] MEDS: risperiDONE 0.5mg tablet PO SCH ×2 (08:00→21:14)
[2019-01-30] MEDS: pantoprazole 40mg Tablet.DR PO SCH (08:31)
[2019-01-30] MEDS: FLUoxetine 20mg capsule PO SCH (08:32)
--- NOTE | 2019-01-30 17:04 | NUR ---
Nursing Progress Note: CASEY Legal hold: [phone] Client on involuntary status for GD Report received from nurse with use of SBAR: XOCHILT Drew Why are they here: Pt transferred from [facility] for grave disability r/t psychotic s/s. Pt has delusions that her family is conspiring behind her back, stealing from her, and placing cameras around the house to record her to make money. Patient believes that multiple family members are beating her in the head causing her to avoid her home. Due to her fears, the pt is unable to provide for food, clothing, and fdc. She has past psychiatric admissions and long-standing psychosis. Assessment What has happened this shift: Pt was sleeping at change of shift. Once awake she is upset and accusatory. She reports that staff is drugging her and she refuses to take medications because she is . Pt refused her Risperdal and Claritin. notified. She appears more guarded and resistive to care & medications today. Later reported having a migraine, PRN [place] administered. Pt's family visited today which went very well. Pt reports feeling "much better" after visit was over. S/I, H/I: Pt denies A/VH: Pt denies Sleep: "OK, but I feel drugged!" ADL's: Independent Group attendance: Yes Were meds taken: Refused Risperdal & Claritin Any med S/E: None reported or observed Mental Status Exam Appearance: Clean, appropriate, dressed in own clothing Eye contact: Good Behavior: paranoid, Delusional (stating she is and cant take medications, feels staff is drugging her) Speech: Clear, soft tone, normal rate and rhythm Mood: Paranoid, occassionally c/o physical unrelieved pain Affect: internally preoccupied, guarded Thought process: , medications Thought Content: perseverating and feeling drugged Cognition: A/O X 3 Insight: Poor Judgment: Poor Interventions PRN's used: [place] X1 Therapeutic interventions: 1:1 assessment, therapeutic conversation, medication administration/ monitoring/education, reality orientation, Q15 min safety checks. Restraints/seclusion/emergency medication: N/A Justification of Continued Inpatient Treatment: Continued therapeutic support and medication management needed to provide stabilization, establishment of a realistic medication regime post discharge to prevent decompensation and readmittance in an acute psychiatric setting. Goal is for pt to go home Monday with daughter and sister.
[2019-01-30 20:00] VITALS: BP 100/56
[2019-01-30] MEDS: traZODone 50mg tablet PO SCH (20:00)
[2019-01-30] MEDS: atorvastatin 20mg tablet PO SCH (21:13)
--- NOTE | 2019-01-31 02:25 | NUR ---
Nursing Progress Note: Legal hold: [phone] Client on involuntary status for GD Report received from nurse with use of SBAR: XOCHILT Marquez Why are they here: Pt transferred from [facility] for grave disability r/t psychotic s/s. Pt has delusions that her family is conspiring behind her back, stealing from her, and placing cameras around the house to record her to make money. Patient believes that multiple family members are beating her in the head causing her to avoid her home. Due to her fears, the pt is unable to provide for food, clothing, and detention. She has past psychiatric admissions and long-standing psychosis. Assessment What has happened this shift: Pt. in her room at the beginning of the shift, and later up in the Group Room for HS snack, interacting appropriately with others. No s/s of pacing the hallway, holding her bible observed this shift. 1:1 completed at bedside, pt. presents as cooperative, somewhat restless, guarded, and with the continued fixed delusion that she is . She continues to deny any H/A or paranoid thoughts that anyone wants to hurt her, however pt. then states, "My neighbor was stealing my medications and giving them to my daughter so she would have seizures." This law writer attempted to reorient pt. from her delusions without success. She is very reluctant to take HS medications r/t the fixed delusion that she is , however, medication education provided and pt. finally consented to take all medications except her scheduled Trazodone. She reports she fears it will hurt the baby, even though she took it last night; and she woke up feeling "groggy" this morning, will endorse to AM shift and monitor. S/I, H/I: Denies A/VH: Continues to deny any A/V/PAZ, however fixed delusions remain Sleep: Pt. reports she likes to get up early, and refuses to take scheduled Trazodone. Reports she woke up feeling "groggy" this morning. ADL's: Requires some direction from staff at times Group attendance: Reports she attends groups Were meds taken: Refuses scheduled Trazodone Any med S/E: Reports she woke up feeling "groggy" this morning r/t Trazodone, will endorse to AM shift. Mental Status Exam Appearance: Neat and appropriately dressed in hospital attire Eye contact: Good Behavior: Pt. presents as cooperative, somewhat restless, guarded, with the continued fixed delusion that she is , and is hesitant to take medications. Speech: Soft, WNL Mood: Pleasant, guarded Affect: Blunted Thought process: WNL Thought Content: Paranoid delusions and phobia r/t taking medications Cognition:A&O X3 (reports she is at [facility]) Insight: Poor Judgment: Fair Interventions PRN's used: None Therapeutic interventions: Maintained a safe and supportive environment, provided clear and simple instructions, reoriented to reality as needed, monitored behaviors and need for intervention, provided positive encouragement and ensured safety, provided medication education, provided a quiet environment for sleep, and maintained Q 15 min safety checks. Restraints/seclusion/emergency medication: N/A Justification of Continued Inpatient Treatment: Pt. requires \\medication adjustments and a safe and supportive environment.
[2019-01-31] MEDS: FLUoxetine 20mg capsule PO SCH (07:41)
[2019-01-31] MEDS: risperiDONE 0.5mg tablet PO SCH ×2 (07:41→20:41)
[2019-01-31] MEDS: pantoprazole 40mg Tablet.DR PO SCH (07:41)
[2019-01-31] MEDS: loratadine 10mg tablet PO SCH (07:41)
[2019-01-31 07:43] VITALS: BP 94/47
[2019-01-31] MEDS: HYDROcodone/acetaminophen 7.5MG/325MG per 15ml UD CUP PO PRN ×2 (12:01→18:53)
--- NOTE | 2019-01-31 17:00 | NUR ---
Nursing Progress Note: CASEY Legal hold: [phone] Client on involuntary status for GD Report received from nurse with use of SBAR: XOCHILT Drew Why are they here: Pt transferred from [facility] for grave disability r/t psychotic s/s. Pt has delusions that her family is conspiring behind her back, stealing from her, and placing cameras around the house to record her to make money. Patient believes that multiple family members are beating her in the head causing her to avoid her home. Due to her fears, the pt is unable to provide for food, clothing, and care home. She has past psychiatric admissions and long-standing psychosis. Assessment What has happened this shift: Patient awake at change of shift. Pacing hallways carrying bible. Patient was reluctant to take medication due to "". Pt. is scheduled for discharge Monday. Pt. states that she is looking forward to D/C. Patient thought she heard her daughters voice and requested for several staff members to look outside the door to see if she was here to visit. S/I, H/I: Pt denies A/VH: Pt denies Sleep: 7.25 hrs NOC ADL's: Independent Group attendance: Yes Were meds taken: yes Any med S/E: None reported or observed Mental Status Exam Appearance: Clean, appropriate, dressed in own clothing Eye contact: Good Behavior: paranoid, Delusional (stating she is and cant take medications, feels staff is drugging her) Speech: Clear, soft tone, normal rate and rhythm Mood: Paranoid, occassionally c/o physical back pain Affect: internally preoccupied, guarded Thought process: , medications Thought Content: perseverating and feeling drugged Cognition: A/O X 3 Insight: Poor Judgment: Poor Interventions PRN's used: [place] X1 Therapeutic interventions: 1:1 assessment, therapeutic conversation, medication administration/ monitoring/education, reality orientation, Q15 min safety checks. Restraints/seclusion/emergency medication: N/A Justification of Continued Inpatient Treatment: Continued therapeutic support and medication management needed to provide stabilization, establishment of a realistic medication regime post discharge to prevent decompensation and readmittance in an acute psychiatric setting. Goal is for pt to go home Monday with daughter and sister.
[2019-01-31 20:00] VITALS: BP 108/69
[2019-01-31] MEDS: traZODone 50mg tablet PO SCH (20:00)
[2019-01-31] MEDS: atorvastatin 20mg tablet PO SCH (20:40)
--- NOTE | 2019-01-31 22:00 | NUR ---
Nursing Progress Note: Legal hold: [phone] Client on involuntary status for GD Report received from nurse with use of SBAR: XOCHILT Ring Why are they here: Pt transferred from [facility] for grave disability r/t psychotic s/s. Pt has delusions that her family is conspiring behind her back, stealing from her, and placing cameras around the house to record her to make money. Patient believes that multiple family members are beating her in the head causing her to avoid her home. Due to her fears, the pt is unable to provide for food, clothing, and intermediate. She has past psychiatric admissions and long-standing psychosis. Assessment What has happened this shift: Pt. sitting in a chair in the hallway at the beginning of the shift, she pleasantly greets this television writer and reports she is awaiting a visit from her daughter. Pt. pulls out a picture of her daughter from the bible that she carries and states, "See, this is what she looks like, so if you see her you will know." Later pt. is sitting in the Recreation Room watching TV and interacting appropriately with others. This television writer encouraged her to attend HS snack and she complied. 1:1 completed later at bedside, pt. continues to presents as cooperative, somewhat restless, guarded, and with the continued fixed delusion that she is . However she presents with a more animated affect and is less resistant to taking medications this shift. Pt. continues to deny any H/A or paranoid thoughts that anyone wants to hurt her, states, "If I had those I would tell you guys." Pt. continues to c/o feeling "groggy" in the morning, she complies with only taking only half of her dose of scheduled Trazodone (100mg), will endorse to AM shift and monitor. S/I, H/I: Denies A/VH: Continues to deny any A/V/PAZ, however fixed delusion that she is remains Sleep: Pt. reports she sleeps well, but likes to get up early and watch the sunrise. She continues to report feeling "groggy" in the morning. ADL's: Requires some direction from staff at times Group attendance: Reports she attends groups, and identifies coping skills as art, exercise, journaling, and learning to identify her feelings Were meds taken: Refuses half of scheduled Trazodone, complies with taking only 100mg Any med S/E: Reports she continues to wake up feeling "groggy" in morning r/t Trazodone, will endorse to AM shift. Mental Status Exam Appearance: Neat and appropriately dressed in hospital attire Eye contact: Good Behavior: Pt. presents as cooperative, somewhat restless, guarded, with the continued fixed delusion that she is , and is hesitant to take medications. Speech: Soft, WNL Mood: Pleasant, guarded Affect: Blunted, with animation Thought process: WNL Thought Content: Paranoid delusions and phobia r/t taking medications Cognition:A&O X3 (reports she is at [facility]) Insight: Poor Judgment: Fair Interventions PRN's used: None Therapeutic interventions: Maintained a safe and supportive environment, provided clear and simple instructions, reoriented to reality as needed, monitored behaviors and need for intervention, provided positive encouragement and ensured safety, provided medication education, provided a quiet environment for sleep, and maintained Q 15 min safety checks. Restraints/seclusion/emergency medication: N/A Justification of Continued Inpatient Treatment: Pt. requires medication adjustments and a safe and supportive environment.
[2019-02-01] MEDS: traZODone 50mg tablet PO SCH ×2 (04:58→20:00)
[2019-02-01] MEDS: HYDROcodone/acetaminophen 7.5MG/325MG per 15ml UD CUP PO PRN ×2 (06:31→19:17)
[2019-02-01] MEDS: loratadine 10mg tablet PO SCH (07:36)
[2019-02-01] MEDS: FLUoxetine 20mg capsule PO SCH (07:36)
[2019-02-01] MEDS: pantoprazole 40mg Tablet.DR PO SCH (07:36)
[2019-02-01] MEDS: risperiDONE 0.5mg tablet PO SCH ×2 (07:36→21:19)
[2019-02-01 08:07] VITALS: BP 122/74
--- NOTE | 2019-02-01 12:07 | NUR ---
Reassessment: Pt continues meeting nutrient needs with documented 75-100% PO intake. [facility] 01/31, Will continue to follow. Recommendations: 1) Continue regular diet 2) bowel care as needed 3) Weekly wt Addendum: 02/01/19 at [address] Amended: Links added.
--- NOTE | 2019-02-01 17:36 | NUR ---
Nursing Progress Note: CASEY Legal hold: [id number] Client on involuntary status for GD Report received from nurse with use of SBAR: Smitha Knox RN Why are they here: Pt transferred from [facility] for grave disability r/t psychotic s/s. Pt has delusions that her family is conspiring behind her back, stealing from her, and placing cameras around the house to record her to make money. Patient believes that multiple family members are beating her in the head causing her to avoid her home. Due to her fears, the pt is unable to provide for food, clothing, and assisted. She has past psychiatric admissions and long-standing psychosis. Assessment What has happened this shift: Patient awake at shift change walking hallways. Pt. With fixed delusion about . Reluctant to take Risperidal. Patient looking forward to discharge Monday. S/I, H/I: Pt denies A/VH: Pt denies Sleep: 5.75 hrs NOC, napped x 1 during daytime. ADL's: Independent Group attendance: Yes Were meds taken: yes Any med S/E: None reported or observed Mental Status Exam Appearance: Clean, appropriate, dressed in own clothing Eye contact: Good Behavior: paranoid, Delusional (stating she is and cant take medications, feels staff is drugging her) Speech: Clear, soft tone, normal rate and rhythm Mood: Paranoid, occassionally c/o back pain Affect: internally preoccupied, guarded Thought process: , medications, DC Thought Content: perseverating and feeling drugged Cognition: A/O X 3 Insight: Poor Judgment: Poor Interventions PRN's used: [place] X1 Therapeutic interventions: 1:1 assessment, therapeutic conversation, medication administration/ monitoring/education, reality orientation, Q15 min safety checks. Restraints/seclusion/emergency medication: N/A Justification of Continued Inpatient Treatment: Continued therapeutic support and medication management needed to provide stabilization, establishment of a realistic medication regime post discharge to prevent decompensation and readmittance in an acute psychiatric setting. Goal is for pt to go home Monday with daughter and sister.
[2019-02-01 20:00] VITALS: BP 117/71
[2019-02-01] MEDS: atorvastatin 20mg tablet PO SCH (21:19)
--- NOTE | 2019-02-01 23:39 | NUR ---
Nursing Progress Note: Legal hold: [id number] Client on involuntary status for GD Report received from nurse with use of SBAR: XOCHILT Ring Why are they here: Pt transferred from [facility] for grave disability r/t psychotic s/s. Pt has delusions that her family is conspiring behind her back, stealing from her, and placing cameras around the house to record her to make money. Patient believes that multiple family members are beating her in the head causing her to avoid her home. Due to her fears, the pt is unable to provide for food, clothing, and long term. She has past psychiatric admissions and long-standing psychosis. Assessment What has happened this shift: Pt. sitting in a chair by her bed journaling at the beginning of the shift, she pleasantly greets this software writer and requests PRN Norton for chronic neck/back pain, administered with effectiveness. 1:1 completed later at bedside, pt. continues to presents as cooperative, guarded, and with the continued fixed delusion that she is . No s/s of restlessness or pacing exhibited this shift. Pt. continues to deny any H/A or paranoid thoughts that anyone wants to hurt her, however continues to have the fixed delusion that she is , and remains reluctant to take medications. She complies with only taking only half of her dose of scheduled Trazodone (100mg), will endorse to AM shift and monitor. Pt. proudly announces to this software writer, "I finished all of my homework from group!" S/I, H/I: Denies A/VH: Continues to deny any A/V/PAZ, however fixed delusion that she is remains Sleep: Pt. reports she sleeps well, but complies with taking only half of her scheduled Trazodone. ADL's: Requires some direction from staff at times Group attendance: Reports she attends groups, and identifies coping skills as art, exercise, journaling, and learning to identify her feelings Were meds taken: Refuses half of scheduled Trazodone, complies with taking only 100mg at HS Any med S/E: None Mental Status Exam Appearance: Neat and appropriately dressed in hospital attire Eye contact: Good Behavior: Pt. presents as cooperative, guarded, with the continued fixed delusion that she is , and is hesitant to take medications. Speech: Soft, WNL Mood: Pleasant, guarded Affect: Blunted, with animation Thought process: WNL Thought Content: Paranoid delusions and phobia r/t taking medications Cognition:A&O X3 Insight: Poor Judgment: Fair Interventions PRN's used: Norton X1 Therapeutic interventions: Maintained a safe and supportive environment, provided clear and simple instructions, reoriented to reality as needed, monitored behaviors and need for intervention, provided positive encouragement and ensured safety, provided medication education, provided a quiet environment for sleep, and maintained Q 15 min safety checks. Restraints/seclusion/emergency medication: N/A Justification of Continued Inpatient Treatment: Pt. scheduled to discharge tomorrow, and continues to require a safe and supportive environment.
[2019-02-02] MEDS: HYDROcodone/acetaminophen 7.5MG/325MG per 15ml UD CUP PO PRN ×2 (06:26→13:19)
[2019-02-02 07:00] VITALS: BP 101/72
[2019-02-02] MEDS: loratadine 10mg tablet PO SCH (07:29)
[2019-02-02] MEDS: risperiDONE 0.5mg tablet PO SCH (07:29)
[2019-02-02] MEDS: FLUoxetine 20mg capsule PO SCH (07:29)
[2019-02-02] MEDS: pantoprazole 40mg Tablet.DR PO SCH (07:29)
[2019-02-02] MEDS ORDERED: RISP0.5T3 PO (13:13)
[2019-02-02] MEDS ORDERED: PANT40TA4 PO (13:13)
[2019-02-02] MEDS ORDERED: OXCA300T16 PO (13:13)
[2019-02-02] MEDS ORDERED: PROP10DR15 OP (13:13)
[2019-02-02] MEDS ORDERED: LORA10TA7 PO (13:13)
[2019-02-02] MEDS ORDERED: SIMV20TA5 PO (13:13)
[2019-02-02] MEDS ORDERED: ALBU18HF2 INH (13:13)
[2019-02-02] MEDS ORDERED: TRAZ-251 PO (13:13)
[2019-02-02] MEDS ORDERED: FLUO40CA10 PO (13:13)
[2019-02-02] MEDS ORDERED: NITR0.4T51 SL (13:13)
[2019-02-02] MEDS ORDERED: ISOS30TA6 PO (13:13)
[2019-02-02] MEDS ORDERED: HYDR-3968 PO (13:28)
--- NOTE | 2019-02-02 13:45 | NUR ---
DISCHARGE NOTE: Patient is discharged in stable condition. During 1:1 encouraged patient to continue taking medications as ordered so that she and her family get along. Pt. verbalizes understanding and states she will continue all meds as ordered. Patient's daughter and family are here to take pt back home. Escorted out of hospital at 13:45.
== END 2019-02-02 13:54 | disposition home or self-care (01) | DRG 885 ==
LOC: ADULT MH 15:28
PROVIDERS: ADMIT Psychiatry & Neurology Psychiatry; ATTEND Psychiatry & Neurology Psychiatry
DX: F20.0 Paranoid schizophrenia (principal); G40.909 Epilepsy, unspecified, not intractable, without status epilepticus; E78.5 Hyperlipidemia, unspecified; G89.29 Other chronic pain; J44.9 Chronic obstructive pulmonary disease, unspecified; F29 Unspecified psychosis not due to a substance or known physiological condition; R73.03 Prediabetes; I25.10 Atherosclerotic heart disease of native coronary artery without angina pectoris; M54.9 Dorsalgia, unspecified; K21.9 Gastro-esophageal reflux disease without esophagitis; K59.00 Constipation, unspecified; Z79.899 Other long term (current) drug therapy; Z81.8 Family history of other mental and behavioral disorders; Z87.891 Personal history of nicotine dependence; Z82.49 Family history of ischemic heart disease and other diseases of the circulatory system; Z82.41 Family history of sudden cardiac death; Z91.14 Patient's other noncompliance with medication regimen
CPT/HCPCS: 36415; 70450; 70544; 70547; 70551; 71045; 80048; 80053; 80061; 83036; 84484; 85025; 85610; 85730; 87081; 93005; 94640; 94760; 99285; J0515; J2060; J3490